=== PATIENT | female | born 1980 | race Asian ===

== ENCOUNTER 2023-09-13 10:50 | Emergency (ER) | payer MEDICAID, OTHER ==
[~2023-09-13] VITALS: Ht 160 cm; Wt 55.0 kg
[2023-09-13 10:56] VITALS: TEMP 98.5; O2SAT 99
[2023-09-13 12:12] LABS: EOSINOPHILS % 0.3 % (0.0-5.0); HEMATOCRIT. 38.2 % (36.0-48.0); HEMOGLOBIN. 12.9 g/dL (12.0-16.0); LYMPHOCYTES % 16.2 % (20.0-50.0); MEAN CORPUSCULAR HEMOGLOBIN 29.3 pg (28.0-32.0); MEAN CORPUSCULAR HGB CONC 33.9 g/dL (31.0-37.0); MEAN CORPUSCULAR VOLUME 86.5 fL (81.0-99.0); MEAN PLATELET VOLUME 9.1 fl (7.4-10.4); MONOCYTES % 6.6 % (2.0-8.0); NEUTROPHILS % 75.9 % (40.0-76.0); PLATELET 351 x1000/uL (130-400); RED BLOOD CELL COUNT 4.42 mill/uL (4.2-5.4); RED CELL DISTRIBUTION WIDTH 13.4 % (11.6-14.6); WHITE BLOOD COUNT 7.7 x1000/uL (4.5-11.0)
[2023-09-13 12:16] LABS: CHLORIDE 108 mEq/L (98-107); POTASSIUM 3.6 mEq/L (3.5-5.1); SODIUM 137 mEq/L (136-145)
[2023-09-13 12:17] LABS: CARBON DIOXIDE 23 mEq/L (21-32)
[2023-09-13 12:19] LABS: HCG SCREEN NEGATIVE
[2023-09-13 12:22] LABS: CREATININE 0.6 mg/dL (0.6-1.0); GLUCOSE 87 mg/dL (70-105); UREA NITROGEN BLOOD 12 mg/dL (9-23)
[2023-09-13 12:29] LABS: TROPONIN I HIGH SENSITIVITY < 4 ng/L (3.0-34)
[2023-09-13 13:22] VITALS: BP 149/94; PULSE 79; RESP 17
== END 2023-09-13 13:34 | disposition home or self-care (01) ==
LOC: ER 10:50
DX: R94.31 Abnormal electrocardiogram [ECG] [EKG] (principal); F41.9 Anxiety disorder, unspecified; F31.9 Bipolar disorder, unspecified; F20.9 Schizophrenia, unspecified; Z88.6 Allergy status to analgesic agent; Z88.5 Allergy status to narcotic agent
CPT/HCPCS: 80048; 84703; 85025; 84484; 36415; 93005; 99284; Z7610 ×2

== ENCOUNTER 2024-07-05 15:12 | Emergency (ER) | payer OTHER ==
[~2024-07-05] VITALS: Ht 160 cm; Wt 57.0 kg
[2024-07-05 15:15] VITALS: O2SAT 99
[2024-07-05 15:33] VITALS: BP 119/84; PULSE 78; RESP 20; TEMP 36.8; O2SAT 99
== END 2024-07-05 16:28 | disposition home or self-care (01) ==
LOC: ER 15:12
DX: F41.9 Anxiety disorder, unspecified (principal); Z88.5 Allergy status to narcotic agent; Z86.59 Personal history of other mental and behavioral disorders
CPT/HCPCS: 99281